=== PATIENT | male | born 1965 | race Caucasian/White ===

== ENCOUNTER 2022-10-17 11:30 | Emergency (ER) | payer SELFPAY ==
[~2022-10-17] VITALS: Ht 165.1 cm; Wt 76.8 kg
[2022-10-17 12:13] LABS: BASOPHILS % 0.5 % (0.0-2.0); EOSINOPHILS % 1.9 % (0.0-5.0); HEMATOCRIT. 43.2 % (42.0-52.0); LYMPHOCYTES % 21.1 % (20.0-50.0); MEAN CORPUSCULAR HEMOGLOBIN 33.3 pg (28.0-32.0); MEAN CORPUSCULAR VOLUME 95.7 fL (80.0-94.0); MEAN PLATELET VOLUME 7.3 fl (7.4-10.4); MONOCYTES % 7.2 % (2.0-8.0); NEUTROPHILS % 69.3 % (40.0-76.0); PLATELET 238 x1000/uL (130-400); RED BLOOD CELL COUNT 4.52 mill/uL (4.7-6.1); RED CELL DISTRIBUTION WIDTH 13.7 % (11.6-14.6)
[2022-10-17 12:35] LABS: CHLORIDE 108 mEq/L (98-107)
[2022-10-17 12:43] LABS: ETHANOL BLOOD < 10 mg/dL (-10)
[2022-10-17 16:35] VITALS: BP 159/97
== END 2022-10-17 16:49 | disposition home or self-care (01) ==
LOC: ER 11:30
DX: R53.1 Weakness (principal); Z86.73 Personal history of transient ischemic attack (TIA), and cerebral infarction without residual deficits
CPT/HCPCS: 36415; 71045; 80053; 80320; 83880; 84484; 85025; 86850; 86900; 93005; 99285; G0480